=== PATIENT | female | born 1985 | race Caucasian/White ===

== ENCOUNTER 2023-11-28 11:18 | Emergency (ER) | payer BC, SELFPAY ==
--- NOTE | 2023-11-28 11:34 | ED.URI ---
HPI - URI/Sore Throat General Chief Complaint: Upper Respiratory Infection Stated Complaint: Sore Throat;Cough Time Seen by Provider: 11/28/23 11:34 Source: patient Mode of arrival: ambulatory Limitations: no limitations History of Present Illness HPI Narrative: 38-year-old female presents with complaint of nasal congestion, cough, postnasal drainage, sore throat for 3 days. Also reports mild diarrhea. Afebrile. Taking [id number] medications to treat her symptoms. Patient concerned for strep throat. Reports recently got back from vacation in [facility]. No chest pain or shortness of breath. All systems reviewed and negative except as noted above. Related Data Home Medications Medication Instructions Recorded Confirmed dextroamphetamine-amphetamine 10 10 mg PO DAILY 11/28/23 11/28/23 mg tablet Allergies Allergy/AdvReac Type Severity Reaction Status Date / Time No Known Allergies Allergy Verified 11/28/23 11:34 Review of Systems Review of Systems: CONSTITUTIONAL: Denies fever, chills, or sweats. EYES: Denies visual changes, redness, or discharge. ENT: Reports rhinorrhea, congestion, sore throat. Denies otalgia. CARDIOVASCULAR: Denies chest pain, palpitations, or edema. RESPIRATORY: Reports cough. Denies dyspnea. GASTROINTESTINAL: Denies abdominal pain, nausea, vomiting, or diarrhea. GENITOURINARY: Denies dysuria or hematuria. SKIN: Denies rash or itching. MUSCULOSKELETAL: Denies back pain, joint pain, or myalgia. NEUROLOGIC: Denies headache, numbness, or weakness. PSYCHIATRIC: Denies anxiety or depression. All other systems reviewed are negative, except as documented in HPI. PMFSH Comments At time of signature, agree with nursing past medical, surgical, social and family history. There is no relevant family history pertinent to the presenting complaint. Exam Narrative: GENERAL: This is a well-nourished, well-developed patient, in no apparent distress. HEAD: normocephalic, atraumatic. EYES: PERRL. Sclera clear/white. Vision is grossly intact. EARS: External ears normal, auditory canals clear and without drainage, TMs normal without perforation. Hearing grossly intact. NOSE: External nose normal with clear nasal drainage, mild erythema to nares. THROAT: Mucous membranes moist, erythematous with swelling. No exudates. NECK: Neck supple, non-tender without lymphadenopathy, masses or thyromegaly. CARDIOVASCULAR: Regular rate and rhythm without murmurs, gallops, or rubs. RESPIRATORY: Clear to auscultation. Breath sounds equal bilaterally. No wheezes, rales, or rhonchi. SKIN: warm, Dry, intact with no suspicious lesions or rash, good texture and turgor. NEURO: awake, alert, and oriented to person, place and time. There were no obvious focal neurologic abnormalities. EXTREMITIES: No joint tenderness, effusion, or edema noted. Course Course Level of Care: Express Care Visit Vital Signs Vital signs: Vital Signs Temperature 36.3 C L 11/28/23 11:38 Pulse Rate 89 11/28/23 11:38 Respiratory Rate 16 11/28/23 11:38 Blood Pressure 147/103 H 11/28/23 11:38 Pulse Oximetry 100 11/28/23 11:38 Temperature 36.3 C L 11/28/23 11:38 Pulse Rate 89 11/28/23 11:38 Respiratory Rate 16 11/28/23 11:38 Blood Pressure 147/103 H 11/28/23 11:38 Pulse Oximetry 100 11/28/23 11:38 Reviewed MDM - URI/Sore Throat MDM Narrative Medical decision making narrative: Patient is aware of diagnosis, understands and agrees to treatment plan. Anticipatory guidance given. Patient agrees to follow-up as directed and is aware of reasons to seek care at the emergency department. Portions of this record may have been created with voice recognition software Negative COVID, influenza and strep test. Patient would like antibiotic, concern for strep throat. Antibiotic education given. Differential Diagnosis Differential diagnosis: Likely pharyngitis Lab Data Labs: Lab Results 11/08
[2023-11-28 11:38] VITALS: BP 147/103; PULSE 89; RESP 16; TEMP 36.3; O2SAT 100
== END 2023-11-28 12:00 | disposition home or self-care (01) ==
PROVIDERS: Emergency Provider Nurse Practitioner Family
DX: J02.8 Acute pharyngitis due to other specified organisms (principal); R03.0 Elevated blood-pressure reading, without diagnosis of hypertension; Z20.822 Contact with and (suspected) exposure to COVID-19; F90.9 Attention-deficit hyperactivity disorder, unspecified type
CPT/HCPCS: 87081; 87426; 87804; 87880; 99213; G0463

== ENCOUNTER 2024-03-06 07:43 | Outpatient (CLI) | payer BC, SELFPAY ==
--- NOTE | ~2024-03-06 | US_ITS ---
EXAMINATION: US OB <= 14 weeks fetus DATE: 03/06/2024 08:09 INDICATION: Amenorrhea TECHNIQUE: Real-time transabdominal and transvaginal obstetric ultrasound. FINDINGS: No prior studies for comparison. The uterus measures 12.5 x 9 x 6.8 cm. There is an intrauterine gestational sac, with pole iden tified. The crown rump length measures 3.5 cm, which correlates with a estimated gestational age of 10 weeks 3 days. heart tones are identified measuring 171 BPM. IMPRESSION: 1. SL IUP with an EGA of 10 weeks, 3 days (EDC by current ultrasound of 09/29/2024). Reviewed, dictated and finalized at location B. IMPRESSION: 1. SL IUP with an EGA of 10 weeks, 3 days (EDC by current ultrasound of 024).
== END 2024-03-06 07:44 ==
LOC: GOSHIMG 07:46
PROVIDERS: Visit Provider Student in an Organized Health Care Education/Training Program
DX: Z34.91 Encounter for supervision of normal pregnancy, unspecified, first trimester (principal); Z3A.10 10 weeks gestation of pregnancy
CPT/HCPCS: 76801

== ENCOUNTER 2024-09-26 16:59 | Inpatient (IN) | payer BC, SELFPAY ==
[2024-09-26] VITALS (10 sets, daily range): BP systolic 105–125; BP diastolic 69–85; PULSE 84–104; TEMP 36.4–36.6; BMI 27.8
--- NOTE | 2024-09-26 17:38 | P.PNAN_ITS ---
Anes - Eval Pre Procedure Procedure: labor epidural Date/Time: 09/26/24 17:38 Surgeon: Preop Diagnosis: pain during labor Pre Op Diagnosis: IOL Patient Data Age: 39 Gender: F Height: Weight: Allergies Allergy/AdvReac Type Severity Reaction Status Date / Time No Known Allergies Allergy Verified 09/19/24 17:17 Home Medications Medication Instructions Recorded Confirmed Type vits no.126-ferrous fum 1 tablet PO DAILY 02/29/24 09/19/24 History 28 mg iron-folic acid 800 mcg tablet (Classic ) RSV vac, preF A and preF B(PF) 120 0.5 ml IM ONCE #1 ea 08/17/24 09/19/24 Rx mcg/0.5 mL IM solution (Abrysvo (PF)) Patient hx anesthesia problems: none Family hx anesthesia problems: none Results Review: All pre-operative results and documents have been reviewed as part of the pre- operative evaluation. PMFSH Past Medical History Medical History (Updated 09/26/24 @ 17:38 by Rosemary Dowling CRNA) ADHD IUP (intrauterine ), incidental Suppression of menses Family History Family History Grandparent Heart disease Social History Social History Smoking status: Never smoker Second hand tobacco smoke exposure: Yes Alcohol intake: former Alcohol use details: occasional Substance use: never Substance use type: does not use Do You Feel Safe in your Home?: Yes Lack of Transportation: No Lack of Food: Never True Current Housing: Decline to Answer Concerned About Future Housing: Decline to Answer Difficulty Paying Gas/Electric Bills: Decline to Answer Difficulty Paying for Meds: Decline to Answer Currently Unemployed: Decline to Answer Education: Decline to Answer Difficulty w/ Childcare or Family Care: Decline to Answer Living arrangements: with family Additional living arrangements comments: Occupation/Education: occupation 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
--- NOTE | 2024-09-26 17:55 | LDADM ---
This patient, Radha Gilmore, was admitted to Labor/Delivery/Recovery 105 on 09/26/24 at 16:59. Plans for labor, pain management and were discussed with patient. Patient/family oriented to hospital policies and general routines including ID bracelet, bed and alarms, visiting hours, pain management, procedures, bathroom and other care routines, personal items, smoking policy, room service/diet and guest tray routines, security routines, and visiting hours. Patient/Family are encouraged to report perceived risks to care and to ask questions if they do not understand what they are told or what they should do. See OBIX for further documentation.
[2024-09-26 18:04] LABS: Basophils Percent Auto 0.3 % (0.2-1.2); Eosinophils Percent Auto 0.3 % (0-4.4); Hematocrit 34.4 % (37.0-47.0); Hemoglobin 11.7 g/dL (12.0-15.0); Immature Granulocyte Absolute 0.03 K/mm3 (0.00-0.031); Immature Granulocyte Percent A 0.3 % (0-0.5); Lymphocytes Absolute Auto 2.22 K/mm3 (0.9-3.2); Mean Corpuscular Hemoglobin 31.5 pg (26-34); Mean Corpuscular Volume 92.5 fl (80-100); Mean Platelet Volume 10.1 fl (7.4-10.4); Monocytes Absolute Auto 0.7 K/mm3 (0.1-0.6); Neutrophils Absolute Auto 6.7 K/mm3 (1.3-6.7); Neutrophils Percent Auto 69.1 % (45.5-73.1); Platelet Count Result 263 k/mm3 (150-375); Red Blood Count 3.72 M/mm3 (4.2-5.4); Red Cell Distribution Width 12.9 % (11.5-14.5); White Blood Count 9.7 K/mm3 (4.5-10.0)
[2024-09-26] MEDS: AMPICILLIN 2 GM/NS 100 ML 2 GM/100 ML BAG IVPB (18:09)
[2024-09-26] MEDS: LACTATED RINGERS 1,000 ML 125 ML IV CONT (18:10)
[2024-09-26] MEDS: DINOPROSTONE 10 MG VAG INSERT VAGINAL (18:10)
[2024-09-26 18:54] LABS: HIV 1/2 Ab P24 Ag Result Negative (Negative)
[2024-09-26 19:07] LABS: Rapid Plasma Reagin Non-Reactive (NonReactive)
[2024-09-26] MEDS: AMPICILLIN 1 GM/NS 50 ML 1 GM/50 ML BAG IVPB (22:07)
[2024-09-27] VITALS (128 sets, daily range): BP systolic 81–136; BP diastolic 51–92; PULSE 66–120; RESP 16–18; TEMP 36.6–37.1; O2SAT 88–100
[2024-09-27] MEDS: AMPICILLIN 1 GM/NS 50 ML 1 GM/50 ML BAG IVPB ×3 (02:02→10:06)
--- NOTE | 2024-09-27 07:09 | P.HP_ITS ---
H&P: HPI History of Present Illness Date/Time: 09/27/24 07:09 Chief Complaint: induction of labor Narrative: Radha is a 39yo @ 39w 5d who presented last night for elective IOL. She reports good movement. She denies VB or LOF. She is s/p Cervidil and now comfortable with epidural. Her is complicated by: - AMA- LDA daily - GBS bacteruria. Rx for ampicillin. Pt will need abx in labor Review of Systems Constitutional: Constitutional: Denies chills, Denies fever(s) and Denies headache(s) Eyes: Eyes: Denies change in vision ENT: Denies headache(s) Cardiovascular: Cardiovascular: Denies chest pain and Denies dyspnea Respiratory: Respiratory: Denies dyspnea Genitourinary: Genitourinary: Denies abnormal vaginal bleeding and Denies vaginal discharge Neurologic: Denies headache(s) Psychiatric: Psychiatric: Denies anxiety and Denies depression [facility] Past Medical History Medical History (Updated 09/27/24 @ 07:13 by Loly Wynne MD) ADHD IUP (intrauterine ), incidental Suppression of menses Family History Family History Grandparent Heart disease Social History Social History Smoking status: Never smoker Second hand tobacco smoke exposure: No Alcohol intake: former Alcohol use details: occasional Substance use: never Substance use type: does not use Do You Feel Safe in your Home?: Yes Lack of Transportation: No Lack of Food: Never True Current Housing: I Have Housing Concerned About Future Housing: No Difficulty Paying Gas/Electric Bills: No Difficulty Paying for Meds: No Currently Unemployed: No Education: Master's Degree or Higher Difficulty w/ Childcare or Family Care: No Living arrangements: with family Additional living arrangements comments: Occupation/Education: 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 Gender identity (if verbalized by the patient): Female Sexual Orientation (if Verbalized by the Patient): Straight or Heterosexual Spiritual care concerns: No Meds Home Medications and Allergies Home Medications Medication Instructions Recorded Confirmed Type vits no.126-ferrous fum 1 tablet PO DAILY 02/29/24 09/19/24 History 28 mg iron-folic acid 800 mcg tablet (Classic ) RSV vac, preF A and preF B(PF) 120 0.5 ml IM ONCE #1 ea 08/17/24 09/19/24 Rx mcg/0.5 mL IM solution (Abrysvo (PF)) Allergies Allergy/AdvReac Type Severity Reaction Status Date / Time No Known Allergies Allergy Verified 09/19/24 17:17 Vital Signs Vital Signs - 24 hr 09/26/24 17:54 09/26/24 18:17 09/26/24 18:30 Temperature Pulse Rate 85 87 Respiratory Rate Blood Pressure 124/85 124/84 Pulse Oximetry Oxygen Delivery Room Air 09/26/24 18:45 09/26/24 19:00 09/26/24 19:17 Temperature Pulse Rate 85 84 90 Respiratory Rate Blood Pressure 119/78 112/69 105/73 Pulse Oximetry Oxygen Delivery 09/26/24 19:30 09/26/24 19:46 09/26/24 20:00 Temperature 98 F Pulse Rate 88 104 H 87 Respiratory Rate Blood Pressure 114/71 114/69 115/74 Pulse Oximetry Oxygen Delivery 09/26/24 20:15 09/26/24 18:00 09/27/24 00:35 Temperature 97.6 F 98.5 F Pulse Rate 84 80 Respiratory Rate Blood Pressure 125/78 121/79 Pulse Oximetry Oxygen Delivery 09/27/24 01:00 09/27/24 01:30 09/27/24 02:00 Temperature 98.6 F Pulse Rate 80 87 Respiratory Rate Blood Pressure 114/80 117/78 Pulse Oximetry Oxygen Delivery 09/27/24 05:00 09/27/24 05:01 09/27/24 05:15 Temperature 98.5 F Pulse Rate 91 90 87 Respiratory Rate Blood Pressure 125/82 117/78 122/79 Pulse Oximetry Oxygen Delivery 09/27/24 05:40 09/27/24 05:45 09/27/24 05:50 Temperature Pulse Rate Respiratory Rate Blood Pressure Pulse Oximetry 99 98 97 Oxygen Delivery 09/27/24 05:55 09/27/24 06:00 09/27/24 06:05 Temperature Pulse Rate 98 Respiratory Rate Blood Pressure 127/92 H Pulse Oximetry 98 98 98 Oxygen Delivery 09/27/24 06:09 09/27/24 06:10 09/27/24 06:11 Temperature Pulse Rate 93 103 H Respiratory Rate Blood Pressure 128/88 132/82 Pulse Oximetry 97 Oxygen Delivery 09/27/24 06:12 09/27/24 06:14 09/27/24 06:15 Temperature Pulse Rate 108 H 94 104 H Respiratory Rate Blood Pressure 133/91 H 136/90 126/78 Pulse Oximetry 98 Oxygen Delivery 09/27/24 06:17 09/27/24 06:18 09/27/24 06:20 Temperature Pulse Rate 103 H 120 H 113 H Respiratory Rate Blood Pressure 125/81 130/75 122/77 Pulse Oximetry 98 Oxygen Delivery 09/27/24 06:23 09/27/24 06:25 09/27/24 06:27 Temperature Pulse Rate 98 95 111 H Respiratory Rate Blood Pressure 119/74 122/73 115/69 Pulse Oximetry 96 Oxygen Delivery 09/27/24 06:30 09/27/24 06:33 09/27/24 06:35 Temperature 98.1 F Pulse Rate 98 113 H 82 Respiratory Rate 16 Blood Pressure 121/66 117/68 114/65 Pulse Oximetry 97 97 Oxygen Delivery 09/27/24 06:38 09/27/24 06:40 09/27/24 06:45 Temperature Pulse Rate 103 H 99 Respiratory Rate Blood Pressure 123/65 109/60 Pulse Oximetry 98 98 Oxygen Delivery 09/27/24 06:50 09/27/24 06:55 09/27/24 07:00 Temperature Pulse Rate Respiratory Rate Blood Pressure Pulse Oximetry 97 98 96 Oxygen Delivery 09/27/24 07:05 Temperature Pulse Rate Respiratory Rate Blood Pressure Pulse Oximetry 98 Oxygen Delivery Exam Const: General: cooperative, healthy appearing, comfortable and no acute distress Orientation/consciousness: patient oriented x3 Resp: Effort & Inspection: normal respiratory effort Cardio: Rate: regular rate GI: GI Palp: No abdominal tenderness : Other: FHT's: 140's/ mod senait/ + accels/ no decels - cat 1 TOCO: ctxs q5min Cervix:4/50/-2 Membranes: AROM, clear 0738 Presentation: cephalic Skin: General skin exam: normal color Neuro: General: patient oriented x3 Extrem: General: normal to inspection Psych: Appearance: grossly normal Affect: normal affect Attitude: cooperative H&P: Results Labs Labs: Short CBC 09/26/24 Range/Units 17:46 WBC 9.7 (4.5-10.0) K/mm3 Hgb 11.7 L (12.0-15.0) g/dL Hct 34.4 L (37.0-47.0) % Plt Count 263 (150-375) k/mm3 Assessment and Plan Assessment and plan (1) Encounter for elective induction of labor: Code(s): Z34.90 - Encounter for supervision of normal , unspecified, unspecified trimester Status: Acute (2) GBS (group B streptococcus) UTI complicating : Code(s): O23.40 - Unspecified infection of urinary tract in , unspecified trimester; B95.1 - Streptococcus, group B, as the cause of diseases classified elsewhere Status: Acute Plan - Admitted overnight; s/p cervidil - S/p epidural and comfortable - GBS ppx w/ ampicillin - Pitocin augmentation per protocol - continuous monitoring; currently reassuring
[2024-09-27] MEDS: LACTATED RINGERS 1,000 ML 125 ML IV CONT (08:21)
[2024-09-27] MEDS: OXYTOCIN 30 UNITS/NS 500 ML 30 UNITS/500 ML BAG IV CONT (08:35)
--- NOTE | 2024-09-27 11:56 | PM.OBPNLAB ---
Pain Control Date/time seen: 09/27/24 11:56 Pain control: epidural Pelvic Exam Dilation (cm): 6 Effacement (%): 90 station: -1 Amniotic membrane status: Ruptured (AROM, clear 0738) Contractions Monitor mode: External Contraction frequency: 2 (-3) Status status: Category l Assessment and Plan Pitocin rate (mU/min): 12 Assessment: active labor Plan: continuous present management
[2024-09-27] MEDS: ONDANSETRON INJ 4 MG/2 ML VIAL IV PUSH (12:09)
--- NOTE | 2024-09-27 12:50 | P.PCNOB_ITS ---
OB - Vaginal Delivery Note Procedure Delivery date: 09/27/24 Events: Elective Induction of Labor, Positive Group B Strep (GBS) and Other (AMA) Induction method: Per Cervidil Protocol Delivery augmentation: Rupture of Membranes and Pitocin Delivery monitor: External FHT and External Uterine Route of delivery: Episiotomy description: None Laceration Description: Perineal - 2nd Degree Delivery repair: vicryl Quantitative Blood Loss (ml): 50 Anesthesia type: Epidural Disposition: Floor Complications: No immediate complications [place] Baby Date of : 09/27/24 Time of : 12:36 Gestational Age by Date: 39 (5) gender: Female Weight (pounds): 6 Weight (ounces): 11 presentation: vertex position: Right Occiput Anterior Placenta delivery description: Expressed Cord Vessel Description: 3 Vessels, Clamped/Cut and Delayed Cord Clamping score one minute: 9 score five minutes: 9 Narrative: Gretchen rapidly progressed from 6 cm to completely dilated approximately 30 minutes. She had strong desire to push. She pushed for approximately 12 minutes with good maternal effort. She delivered the head over intact perineum. No nuchal cord was palpated. She easily delivered the 's shoulders and body without complication. The was immediately placed skin to skin and had spontaneous cry. Delayed cord clamping was performed. The umbilical cord was then doubly clamped and cut. A segment of the cord was collected for cord gases. The remaining cord blood was collected for typing. With Pitocin running and gentle downward traction on the cord, the placenta delivered without complication. fundal massage was performed and good uterine tone with minimal bleeding was noted. She was examined and a small second-degree perineal laceration was identified. The perineal laceration was repaired in the normal fashion using 2-0 Vicryl. Fundal massage was once again performed and good uterine tone lap with minimal bleeding was noted. Sponge, lap, instrument, and needle counts were correct at the end of the procedure. Mom and baby were left bonding in the birthing suite in stable condition.
[2024-09-27] MEDS: OXYTOCIN 30 UNITS/NS 500 ML 30 UNITS/500 ML BAG 125 UNITS IV CONT (13:10)
[2024-09-27] MEDS: LORATADINE 10 MG TABLET (15:17)
[2024-09-27] MEDS: BENZOCAINE 20% AER SPR (*SP) 56 GM CAN 1 SPRAY TOPICAL (15:20)
[2024-09-27] MEDS: WITCH HAZEL 40 PADS 1 PAD TOPICAL (15:20)
--- NOTE | 2024-09-27 15:49 | OBPPTRN ---
1526-Patient transferred to post room #285 via wheelchair. Support person present. Oriented to unit, room, information board, rooming in, admission packet and security measures. Patient verbalizes understanding.
[2024-09-27] MEDS: DOCUSATE SODIUM 100 MG CAPSULE PO (16:18)
[2024-09-27] MEDS: IBUPROFEN 600 MG TABLET PO (16:18)
[2024-09-28] MEDS: ACETAMINOPHEN 325 MG TABLET 650 MG PO ×3 (01:14→14:50)
[2024-09-28] MEDS: IBUPROFEN 600 MG TABLET PO ×2 (04:01→11:11)
[2024-09-28 05:42] LABS: Hematocrit 30.6 % (37.0-47.0); Hemoglobin 10.1 g/dL (12.0-15.0); Mean Corpuscular Hemoglobin 31.8 pg (26-34); Mean Corpuscular Volume 96.2 fl (80-100); Mean Platelet Volume 10.4 fl (7.4-10.4); Platelet Count Result 210 k/mm3 (150-375); Red Blood Count 3.18 M/mm3 (4.2-5.4); Red Cell Distribution Width 13.1 % (11.5-14.5); White Blood Count 11.4 K/mm3 (4.5-10.0)
--- NOTE | 2024-09-28 08:03 | P.PNOB_ITS ---
OB - PN: Subj Subjective Date/time seen: 09/28/24 08:03 Narrative: PPD#1 Radha reports doing well today. 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 Her pain is controlled. She is tolerating regular diet, voiding, passing gas, and ambulating without issues. She is bottle feeding. She would like to go home today. OB - PN: Obj Data Labs 09/28/24 04:08 Labs: Laboratory Results - last 24 hr 09/28/24 04:08 WBC 11.4 H RBC 3.18 L Hgb 10.1 L Hct 30.6 L MCV 96.2 MCH 31.8 MCHC 33.0 RDW 13.1 Plt Count 210 MPV 10.4 OB - PN A/P Assessment and Plan (1) Normal vaginal delivery of third : Code(s): O80 - Encounter for full-term uncomplicated delivery Status: Acute Plan day: 1 Plan: routine care and discharge home (this PM) Comments: - PO pain meds - Regular diet - Ambulation and hydration encouraged - Continue putting baby to breast q2-3hr - Pelvic rest; take meds as prescribed - ER return precautions: fever, n/v/abd pain, bleeding, HTN Time Spent With Patient Time: Total time spent is greater than 50% in coordination of care (as documented) at patient's floor/unit and/or counseling patient: Review of Systems Constitutional: Constitutional: Denies chills, Denies fever(s) and Denies headache(s) Eyes: Eyes: Denies change in vision ENT: Denies dizziness and Denies headache(s) Cardiovascular: Cardiovascular: Denies chest pain, Denies palpitations and Denies dyspnea Respiratory: Respiratory: Denies cough and Denies dyspnea Gastrointestinal: Gastrointestinal: Denies nausea and Denies vomiting Neurologic: Denies dizziness and Denies headache(s) Endocrine: Endocrine: Denies palpitations Exam Const: General: cooperative, comfortable and no acute distress Orientation/consciousness: patient oriented x3 Resp: Effort & Inspection: normal respiratory effort Auscultation: clear to auscultation bilaterally Cardio: Rate: regular rate GI: Inspection: non-distended GI Palp: No abdominal tenderness and Yes Soft to palpation Auscultation: normal bowel sounds : Other: fundus firm Skin: General skin exam: normal color Neuro: General: patient oriented x3 Extrem: General: normal to inspection Psych: Appearance: grossly normal Affect: normal affect Attitude: cooperative
[2024-09-28 08:25] VITALS: BP 117/80; PULSE 73; RESP 16; TEMP 36.4; O2SAT 98
--- NOTE | 2024-09-28 09:40 | WPDANLDPN2 ---
Anes-Prog Note L&D Date/Time: 09/28/24 09:40 Comfortable throughout: labor and delivery Neuraxial method: epidural Epidural/Spinal procedure site: clean & non-tender Neuro status: Neuro function grossly intact. Cardiovascular status: normal Respiratory status: normal Airway patency: baseline Mental status: baseline Post-Op hydration status: normal Vital Signs: Last Vital Signs Temp 36.4 C 09/28/24 08:25 Pulse 73 09/28/24 08:25 Resp 16 09/28/24 08:25 BP 117/80 09/28/24 08:25 Pulse Ox 98 09/28/24 08:25 O2 Del Method Room Air 09/27/24 16:00 Pain score (VAS): 2/10 Post-procedural complaints: none Patient feedback: Patient satisfied with anesthetic care.
--- NOTE | 2024-09-28 09:42 | PM.OBDSVD ---
DS: Admitting Diagnosis Discharge Date 09/28/24 Admitting Diagnosis Elective induction of labor AMA GBS positive DS: Discharge Diagnosis Discharge Diagnosis (1) Normal vaginal delivery of third : Code(s): O80 - Encounter for full-term uncomplicated delivery Status: Acute OB - DS: Summary OB Procedures : Ultrasound OB Procedures Intrapartum: Spontaneous Vag Delivery OB Procedures: : None Peripartum Data Delivery Method: Natural Vaginal Laceration Description: Perineal - 2nd Degree Episiotomy description: None complications: none [place] 1: Gender: Female Disposition of : home Status at Discharge Functional status at discharge: independent ambulation Overall status at discharge: patient is back to baseline Time Spent with Patient Time attestation: Total time spent providing and/or coordinating discharge services: Time spent: Less than 30 minutes Exam Const: General: cooperative, healthy appearing, comfortable and no acute distress Orientation/consciousness: patient oriented x3 Resp: Effort & Inspection: normal respiratory effort Auscultation: clear to auscultation bilaterally Cardio: Rate: regular rate GI: Inspection: non-distended GI Palp: No abdominal tenderness and Yes Soft to palpation Auscultation: normal bowel sounds : Other: fundus firm Skin: General skin exam: normal color Neuro: General: patient oriented x3 Extrem: General: normal to inspection Psych: Appearance: grossly normal Affect: normal affect Attitude: cooperative DS: Data Data Completed and Pending Labs on day of discharge: Labs from last 24 hours 09/28/24 04:08 WBC 11.4 H RBC 3.18 L Hgb 10.1 L Hct 30.6 L MCV 96.2 MCH 31.8 MCHC 33.0 RDW 13.1 Plt Count 210 MPV 10.4 Discharge Plan Discharge Attending physician on discharge: Loly Wynne Discharging Clinician: Loly Wynne Anticipated Discharge Date/Time: 09/28/24 14:00 Patient Disposition: Home, Self-Care Activity: may shower and pelvic rest Diet: regular Patient Instructions: Vaginal Delivery (DC) Stand Alone Forms: General Discharge Information Follow-up/Referrals: Loly Wynne MD [Physician] - 4 Weeks Discharge Medications: New acetaminophen 325 mg Tablet 650 mg PO Q6H PRN (Reason: Mild Pain (1-3) Or Headache) Qty: 60 0RF docusate sodium 100 mg Capsule 100 mg PO BID PRN (Reason: Constipation) Qty: 60 0RF ibuprofen 600 mg Tablet 600 mg PO Q6H PRN (Reason: Cramping) Qty: 40 0RF Continued Classic 28 mg iron- 800 mcg tablet 1 tablet PO DAILY Discontinued Abrysvo (PF) 120 mcg/0.5 mL recon soln 0.5 ml IM ONCE Qty: 1 0RF Rx Instructions: as a single dose 33 wks and 6 days today (08/17/24); Due date: 09/29/24 Date of admission: 09/26/24 16:59 Primary Care Provider: Brendan,Ange Admitting Provider: Loly Wynne Attending physician on admission: Loly Wynne Condition: Stable
[2024-09-28 11:56] VITALS: BP 112/63; PULSE 81; RESP 16; TEMP 36.8; O2SAT 99
== END 2024-09-28 15:02 | disposition home or self-care (01) | DRG 807 ==
LOC: ANHLDR 17:03 → ANHOB2 09-27 15:30
PROVIDERS: Admitting Provider Obstetrics & Gynecology; Visit Provider Obstetrics & Gynecology
DX: O99.824 Streptococcus B carrier state complicating childbirth (principal); Z37.0 Single live birth; O70.1 Second degree perineal laceration during delivery; Z3A.39 39 weeks gestation of pregnancy
CPT/HCPCS: 36415; 85025; 85027; 86592; 86703; 86850; 86900; 86901; A9270; G0432; J0290; J2405; J2590; J2795; J7120